=== PATIENT | male | born 1965 | race Caucasian/White ===

== ENCOUNTER 2019-03-21 17:37 | Emergency (ER) | payer MEDICAID, OTHER ==
[~2019-03-21] VITALS: Ht 172.7 cm; Wt 65.8 kg
[2019-03-21 17:44] VITALS: BP 112/73
[2019-03-21] MEDS ORDERED: NEOSPORIN OINT. PKT 1 PACKET ONE (18:34)
== END 2019-03-21 19:07 | disposition home or self-care (01) ==
LOC: ED 19:00
DX: S61.012A Laceration without foreign body of left thumb without damage to nail, initial encounter (principal); F17.200 Nicotine dependence, unspecified, uncomplicated; X58.XXXA Exposure to other specified factors, initial encounter; Y93.89 Activity, other specified; Y92.009 Unspecified place in unspecified non-institutional (private) residence as the place of occurrence of the external cause; Y99.8 Other external cause status
CPT/HCPCS: 29125; 99283